=== PATIENT | male | born 1995 | race Two or more races ===

== ENCOUNTER 2018-07-21 15:10 | Emergency (ER) | payer OTHER ==
[~2018-07-21] VITALS: Ht 188 cm; Wt 72.6 kg
--- NOTE | 2018-07-21 16:38 | NUR ---
Patient discharged to home in stable conditon. Written and verbal after care instructions given. Patient verbalizes understanding of instructions.
== END 2018-07-21 16:40 | disposition home or self-care (01) ==
LOC: ER 15:10
DX: S00.01XA Abrasion of scalp, initial encounter (principal); R56.9 Unspecified convulsions; X58.XXXA Exposure to other specified factors, initial encounter; Y93.89 Activity, other specified; Y92.89 Other specified places as the place of occurrence of the external cause; Y99.8 Other external cause status
CPT/HCPCS: A4663

== ENCOUNTER 2019-09-16 12:18 | Emergency (ER) | payer SELFPAY ==
[~2019-09-16] VITALS: Ht 188 cm; Wt 74.8 kg
[2019-09-16] MEDS ORDERED: PHEN100C4 PO (12:26)
[2019-09-16] MEDS ORDERED: DIVA500T2 PO (12:26)
--- NOTE | 2019-09-16 12:49 | NUR ---
PT IS IN ROOM #1B. DR HERNÁNDEZ EVALUATED THE PT.
--- NOTE | 2019-09-16 13:39 | NUR ---
PT WAS D/C TO HOME. D/C INSTRUCTIONS GIVEN TO THE PT. MOS/S OF SEIZURES AT THE TIME OF DISCHARGE. NO SOB. NO N/V. PT DENIES PAIN. GAIT IS STABLE.
[2019-09-16 13:40] VITALS: BP 128/72
== END 2019-09-16 13:41 | disposition home or self-care (01) ==
LOC: ER 12:18
DX: S09.90XA Unspecified injury of head, initial encounter (principal); R56.9 Unspecified convulsions; M25.512 Pain in left shoulder; Z79.899 Other long term (current) drug therapy; X58.XXXA Exposure to other specified factors, initial encounter; Y93.89 Activity, other specified; Y92.89 Other specified places as the place of occurrence of the external cause; Y99.8 Other external cause status
CPT/HCPCS: 36415; 70450; 80164; A4663